=== PATIENT | male | born 1985 | race Caucasian/White ===

== ENCOUNTER 2024-08-30 09:11 | Emergency (ER) | payer OTHER, SELFPAY ==
[2024-08-30 09:53] VITALS: BP 119/78; PULSE 95; RESP 16; TEMP 36.6; O2SAT 99; BMI 26.2
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
--- OUTSIDE RECORDS SUMMARY | 2024-08-30 10:49 | XMS_ITS ---
Author Organization [facility] Address [address], [place] [phone] Care Team Providers Care Sugar Controller Name Role Phone Liberty Ospina Primary Care Provider Harsha Hung Unavailable [phone] [facility] [phone] REASON FOR VISIT MH Correspondence Encounters Encounter Location Date Provider Diagnosis [facility] [address], [place] [phone] 05/09/2024 [facility] Plan Of Treatment No Information Progress Notes * CUEVARenzo GODOB:1984 (38 yo M)Acc No.[id number]:05/09/2024 Patient:?Renzo CUEVA :1985???Age:38 Y???Sex:Male Address:[address], [place], [address] * true * Date:? Generated for Printi ng/Fatriciag/eTransmitting on:?08/30/2024 10:48 AM EST
--- NOTE | 2024-08-30 12:59 | ECG_ITS ---
Test Reason : CP Blood Pressure : */* mmHG Vent. Rate : 102 BPM Atrial Rate : 102 BPM P-R Int : 122 ms QRS Dur : 92 ms QT Int : 346 ms P-R-T Axes : 70 34 30 degrees QTcB Int : 450 ms Sinus tachycardia Otherwise normal ECG No previous ECGs available Referred By: Chelsea Hragrove Electronically Signed By: ROCÍO HOANG
[2024-08-30 13:41] LABS: MANUAL DIFF FLAG NO
[2024-08-30 13:42] LABS: Basophils Percent Auto 0.7 % (0-2); Eosinophils Absolute Auto 0.1 X10*3/uL (0.0-0.4); Eosinophils Percent Auto 2.5 % (0-4); Imm Gran Abs Auto 0.01 X10*3/uL (0.00-0.03); Imm Gran Pct Auto 0.2 % (0.0-0.4); Lymphocytes Absolute Auto 1.8 X10*3/uL (1.2-4.9); Mean Corpuscular HGB Conc 34.9 g/dl (31.0-36.0); Mean Corpuscular Hemoglobin 29.1 pg (27.0-33.0); Mean Corpuscular Volume 83.3 fL (80.0-98.0); Mean Platelet Volume 8.8 fL (9.4-12.4); Monocytes Absolute Auto 0.4 X10*3/uL (0.1-1.2); Monocytes Percent Auto 7.9 % (2-11); Neutrophils Absolute Auto 2.1 x10*3/uL (2.0-8.3); Neutrophils Percent Auto 47.7 % (45-73); Platelet Count 252 X10*3/uL (160-400); Red Blood Count 5.16 X10*6/uL (4.60-5.80); Red Cell Distribution Width 12.9 % (11.0-16.0); White Blood Count 4.4 X10*3/uL (4.8-10.8)
[2024-08-30 14:04] LABS: Alanine Aminotransferase 57 U/L (0-40); Alkaline Phosphatase 80 U/L (39-117); Anion Gap 10 (12-20); Aspartate Amino Transferase 26 U/L (5-37); Bilirubin Total 0.3 mg/dL (0.0-1.0); Blood Urea Nitrogen 12 mg/dL (9-16); Carbon Dioxide 25 mmol/L (22-29); Chloride 109 mmol/L (96-108); Creatinine Clr Calc Pharmacy 141.8; Estimated Glomerular Filt Rate > 60; Ethanol < 10 mg/dL; Glucose Random 101 mg/dL (60-115); Magnesium 2.2 mg/dL (1.6-2.6); Potassium 4.5 mmol/L (3.3-5.1); Sodium 139 mmol/L (135-145); Total Protein 7.2 g/dL (6.5-8.0)
[2024-08-30 14:05] LABS: Troponin-I High Sensitivity < 2.7 ng/L (<3.5-35.0)
--- NOTE | 2024-08-30 15:13 | ED_ITS ---
HPI - Chest Pain General Chief Complaint: Chest Pain Stated Complaint: Chest pain Time Seen by Provider: 08/30/24 15:04 Source: patient and old records reviewed Mode of arrival: ambulatory Limitations: no limitations History of Present Illness ED Provider: HILARY DURAN narrative: 39 yo male with PMH of anxiety, ED, prior palpitations and has been dealing with 6+ months of heart zings. He does not use drugs and he has been not drinking or smoking. He notes his father had heart disease at young age. Today had the same electrical shocks in his heart when he woke and called his new PCP who he hasn't seen yet and they told him to come here. No recent URI, travel, known ACS, prior VTE. He has no pain now. He is anxious. He went to [facility] for this in the past but work up was negative. MD complaint: chest pain Onset (ago): month(s) (6) Timing of current episode: episodic Prior episodes: Yes Onset: during rest and during exertion Pain location: left chest Pain radiation: none Severity: mild Quality: other ( electrical zaps ) Relieving factors: nothing Exacerbating factors: nothing Associated symptoms: palpitations Treatment prior to arrival: none Related Data Allergies Allergy/AdvReac Type Severity Reaction Status Date / Time No Known Allergies Allergy Verified 08/30/24 09:53 Review of Systems 2 Review of Systems: Constitutional : No Weight loss, No Fever, No Chills ENT/Mouth : No sore throat, No Rhinorrhea Eyes: No Eye Pain, No Swelling Cardiovascular : no Chest Pain, pos SOB, no Dyspnea on Exertion, No Orthopnea, No Edema, No Palpitations Respiratory : No Cough, No Sputum Gastrointestinal : no Nausea, No Vomiting, No Diarrhea, No abdominal Pain, No Hematochezia, No Melena Genitourinary : No Dysuria, No Urinary Frequency Musculoskeletal : No joint pain, No Myalgias, No Joint Swelling Skin : No Skin Lesions, No rash Neuro : No Weakness, No Numbness, No Dizziness, No Headache Psych : pos Anxiety/Panic, No Depression All other systems reviewed and are negative [facility] Past Medical History Attestation statement: The following information was validated with the patient. Source: old records reviewed Medical History (Updated 08/30/24 @ 15:33 by Ibis May DO) Anxiety Social History Social History (Updated 02/21/25 @ 15:33 by Ibis May DO) Patient Tobacco Use Status: Former Tobacco user Physical Exam 2 Vital Signs: Vital Signs: Last Vital Signs Temp 98 F 08/30/24 09:53 Pulse 95 08/30/24 09:53 Resp 16 08/30/24 09:53 BP 119/78 08/30/24 09:53 Pulse Ox 99 08/30/24 09:53 O2 Del Method Room Air 08/30/24 09:53 BMI result Body Mass Index 26.2 Appearance: Alert. Oriented X3. No acute distress. anxious Eyes: Pupils equal, round and reactive to light. ENT: Pharynx normal. Neck: Normal inspection. Neck supple. CVS: Normal heart rate and rhythm. Pulses normal. Respiratory: No respiratory distress. Breath sounds normal. Abdomen: Soft and nontender. Skin: Skin warm and dry. Normal skin color. Normal skin turgor. Extremities: No lower extremity edema. No calf ttp Neuro: Oriented X 3. No motor deficit. No sensory deficit. CN2-12 intact Course Course Course Narrative: repeat BP 138/68 HR in 90s Medical Decision Making Medical Decision Making [facility] Narrative: 39 yo male with PMH of anxiety, alcohol abuse stopped drinking and smoking 2 days ago now here with c/o atypical electrical shock type pain x 6 months on and off today it was worse when he woke. No recent travel and no procedures. He has been seen at [facility] in the past for the same. He is not an IVDA - at this time patient will need basic labs and EKG. Suspect more lyte issue vs atypical chest pain vs anxiety. Doubt VTE/dissection given 6 months of symptoms. Differential Diagnosis Differential Diagnoses: The differential diagnosis associated with the presentation includes anxiety, atypical chest pain doubt VTE given 6 months duration BP stable, labs reassuring, lungs CTAB doubt PTX given 6 months of symptoms Admission/Observation Consideration of admission/observation: Escalation of care including admission/observation considered labs reassuring stable for DC Lab Data [facility] Lab Attestation statement: I reviewed the patient's lab results. 08/30/24 13:28 08/30/24 13:28 Labs: Lab Results 08/30/24 Range/Units 13:28 WBC 4.4 L (4.8-10.8) X10*3/uL RBC 5.16 (4.60-5.80) X10*6/uL Hgb 15.0 (14.0-18.0) g/dl Hct 43.0 (42.0-52.0) % MCV 83.3 (80.0-98.0) fL MCH 29.1 (27.0-33.0) pg MCHC 34.9 (31.0-36.0) g/dl RDW 12.9 (11.0-16.0) % Plt Count 252 (160-400) X10*3/uL MPV 8.8 L (9.4-12.4) fL Immature Gran % (Auto) 0.2 (0.0-0.4) % Neut % (Auto) 47.7 (45-73) % Lymph % (Auto) 41.0 H (20-40) % [place] % (Auto) 7.9 (2-11) % Eos % (Auto) 2.5 (0-4) % Baso % (Auto) 0.7 (0-2) % Lymph # (Auto) 1.8 (1.2-4.9) X10*3/uL [place] # (Auto) 0.4 (0.1-1.2) X10*3/uL Eos # (Auto) 0.1 (0.0-0.4) X10*3/uL Baso # (Auto) 0.0 (0.0-0.2) X10*3/uL Abs Immat Gran (auto) 0.01 (0.00-0.03) X10*3/uL Absolute Neuts (auto) 2.1 (2.0-8.3) x10*3/uL Absolute Nucleated RBC 0.000 (0.0-0.012) X10*3/uL Nucleated RBC % (auto) 0.0 (0.0-0.2) /100WBC Sodium 139 (135-145) mmol/L Potassium 4.5 (3.3-5.1) mmol/L Chloride 109 H (96-108) mmol/L Carbon Dioxide 25 (22-29) mmol/L Anion Gap 10 L (12-20) BUN 12 (9-16) mg/dL Creatinine 0.73 (0.5-1.4) mg/dL Estim Creat Clear Calc 141.8 Estimated GFR > 60 Random Glucose 101 (60-115) mg/dL Calcium 9.0 (8.4-10.2) mg/dL Magnesium 2.2 (1.6-2.6) mg/dL Total Bilirubin 0.3 (0.0-1.0) mg/dL AST 26 (5-37) U/L ALT 57 H (0-40) U/L Alkaline Phosphatase 80 (39-117) U/L Troponin I High Sens < 2.7 (<3.5-35.0) ng/L Total Protein 7.2 (6.5-8.0) g/dL Albumin 4.0 (3.5-5.0) g/dL Ethyl Alcohol < 10 mg/dL Independent Interpretation I performed an independent interpretation of an: EKG Interpretation: Rate: 102 Rhythm: sinus tachycardia Ke[place]: normal Normal P waves. Normal CARLOS. Normal QRS complex. ST T wave : normal no ELIZABETH qTC: 450 prior studies: no acute ischemia The study has been interpreted contemporaneously by me. . External Record Review External record reviewed: Outpatient record Prescription Management I considered prescription management with: Other Discharge Plan Discharge Clinical Impression: Atypical chest pain, Heart palpitations Patient Disposition: Home, Self-Care Instructions: Chest Pain (ED), Heart Palpitations (ED) Additional Instructions: labs reassuring other than mild bump in one liver enzyme - can monitor with your doctor do not take any diuretics return for any worsening symptoms or concerns follow up with your doctor and radial drill operator for plastic given your family history decrease caffeine/energy drink intake Referrals: [facility] [Provider Group] Print Language: Prydeinig
--- NOTE | 2024-08-30 15:23 | PC.NURSE ---
PT WAS SEEN AND DISCHARGED BY PROVIDER
== END 2024-08-30 15:24 | disposition home or self-care (01) ==
PROVIDERS: Physician Assistant Medical; Emergency Provider Emergency Medicine
DX: R07.89 Other chest pain (principal); R00.2 Palpitations; Z51.81 Encounter for therapeutic drug level monitoring; Z79.899 Other long term (current) drug therapy
CPT/HCPCS: 36415; 80053; 80307; 83735; 84484; 85025; 93005; 99283

== ENCOUNTER → 2024-08-30 12:59 | Outpatient (BNV) | payer OTHER, SELFPAY | PROVIDERS: Emergency Provider Emergency Medicine; Visit Provider Internal Medicine | DX: R00.0 Tachycardia, unspecified (principal) | CPT/HCPCS: 93010 ==

== ENCOUNTER 2025-01-02 13:15 | Emergency (ER) | payer OTHER, SELFPAY ==
--- NOTE | 2025-01-02 13:20 | ED_ITS ---
HPI - Ear Problem General Chief complaint: Ear Problems Stated complaint: Object in ear canal? Time Seen by Provider: 01/02/25 13:27 Source: patient and RN notes reviewed Mode of arrival: ambulatory Limitations: no limitations History of Present Illness ED Provider: Betty Tamez PA-C HPI Narrative: This is a 39-year-old male, with no known medical problems, who presents emergency department with complaints of left ear blockage. Patient states that he believes that piece of on and got trapped in his nasal cavity yesterday. States that he has pressure in his left nose and left ear feels blocked. Recently completed amoxicillin for dental pain. No fevers, chills, headache, dizziness, blurred vision, CP, SOB. No other complaints or concerns at this time. MD Complaint: decreased hearing Location: left ear Severity: moderate Relieving factors: nothing Exacerbating factors: nothing Discharge from ear: no Associated symptoms ear: decreased hearing Treatment prior to arrival: none Related Data Previous Rx's ?Medication ?Instructions ?Recorded doxycycline hyclate 100 mg tablet 100 mg PO BID 7 days #14 tabs 01/02/25 fluticasone propionate 50 2 spray intranasal DAILY #16 grams 01/02/25 mcg/actuation nasal spray,suspension (Flonase Allergy Relief) Allergies Allergy/AdvReac Type Severity Reaction Status Date / Time No Known Allergies Allergy Verified 01/02/25 13:25 Review of Systems Review of Systems: Yes all other systems are reviewed and are negative Constitutional: Constitutional: Reports as per [facility] Past Medical History Medical History (Updated 01/03/25 @ 00:01 by Greg Levi) Anxiety Social History Social History (Updated 08/30/24 @ 15:33 by Ibis May DO) Patient Tobacco Use Status: Former Tobacco user Advance Directives: No Advance Directives Information Provided: Yes Physical Exam Vital Signs: Vital Signs: Last Vital Signs Temp 97.8 F 01/02/25 14:20 Pulse 107 H 01/02/25 14:20 Resp 16 01/02/25 14:20 BP 132/98 H 01/02/25 14:20 Pulse Ox 95 01/02/25 14:20 O2 Del Method Room Air 01/02/25 14:20 BMI result Body Mass Index 29.1 Const: General: cooperative, comfortable and no acute distress Alfredo entation/consciousness: patient oriented x3 Limitations: no limitations HEENT: Other: Left ear canal with cerumen impaction noted, unable to visualize TM, after irrigation, TM intact no erythema or bulging. L nare with polyp noted, no FB seen. Head: Yes normal to inspection, Yes normocephalic and Yes atraumatic Ears: hearing grossly normal bilaterally General nose exam: Normal external nose present Face and sinus: Yes normal facial exam Mouth: Normal oral and palatal mucosa present, oropharynx normal and moist mucous membranes Throat: Yes posterior oropharynx normal Eyes: General: appearance normal, both eyes and all related structures Eyel ids: Yes eyelids normal Conjunctivae: conjunctivae normal Sclerae: sclerae normal Pupils: Equal, round and reactive pupils present EOM: EOMs intact bilaterally Neck: Neck: Yes normal visual inspection, Yes full ROM and Yes no lymphadenopathy Lymphatic: no lymphadenopathy noted Chest: Chest palpation & inspection: normal inspection of the chest Resp: Effort & Inspection: normal respiratory effort and able to speak in complete sentences Auscultation: clear to auscultation bilaterally, no crackles, no rales, no rhonchi and no wheezes Cardio: Rate: regular rate Rhythm: regular rhythm Heart sounds: S1 normal heart sound present and S2 normal heart sound present GI: Inspection: Yes normal to inspection Skin: General skin exam: no rashes or lesions noted Trauma: no lacerations or abrasions Wounds: no wounds Neuro: General: patient oriented x3 and moves all extremities Cranial nerves: Yes Equal, round and reactive pupils present Extrem: General: Yes normal to inspection Right upper extremity: normal to inspection Left upper extremity: normal to inspection Right lower extremity: normal to inspection Left lower extremity: normal to inspection Procedures Ear Wax Removal Left Ear: Cerumenolytic Used: Colace Results: Re-examined: cerumen removed completely TM Examination: TM(s) intact, normal appearance Ear Canal Exam: atraumatic Patient Tolerated Procedure: well and no complications Complications: no problems Technique: ear canal irrigated and ear canal curetted Medical Decision Making Medical Decision Making MDM Narrative: This is a 39-year-old male, with no known medical problems, who presents emergency department with complaints of left ear blockage. Pt's ear irrigated with cerumen removed, pt tolerated well. Pt with TTP overlying maxillary sinuses and left nasal polp noted. DDX inicluding acute sinusitis, cerumen impaction, FB. given recent tx with amox, will trial doxy for sinusitis. Also encouraged to use steroidal nasal spray for polyp in left nare. Given return precautions. Stable for d.c Differential Diagnosis Differential Diagnoses: The differential diagnosis associated with the presentation includes see above Admission/Observation Consideration of admission/observation: Escalation of care including admission/observation considered Lab Data MDM Lab Attestation statement: I reviewed the patient's lab results. Negative Labs: Lab Results 01/02/25 Range/Units 13:30 Influenza Type A (PCR) NEGATIVE (Negative) Influenza Type B (PCR) NEGATIVE (Negative) RSV RNA Qual (PCR) NEGATIVE (Negative) SARS-CoV-2 RNA (RT-PCR) NEGATIVE (Negative) S. pyogenes GrpA PITO Negative (Negative) Discharge Plan Discharge Clinical Impression: Cerumen impaction, Sinus pain, Seasonal allergies Patient Disposition: Home, Self-Care Instructions: Allergies (ED) Additional Instructions: You were seen in the ER today. You could not stay for your test results to return - I will call you with your test results performed today. Your left ear did have cerumen in it therefore we flushed this out. Please use an allergy medication daily as this will help with your symptoms. If any new or worsening symptoms occur, please return for re-evaluation. Prescriptions: New fluticasone propionate [Flonase Allergy Relief] 50 mcg/actuation spray,suspension 2 spray intranasal DAILY Qty: 16 0RF Rx Instructions: administer into each nostril doxycycline hyclate 100 mg tablet 100 mg PO BID 7 Days Qty: 14 0RF Stand Alone Forms: Work/School Release Interventions: ED Discharge Assessment Last Done: 01/02/25 14:20 Discharge Date/Time: 01/02/25 14:20 Print Language: Mexican
[2025-01-02 13:22] VITALS: BP 132/98; PULSE 107; RESP 16; TEMP 36.6; O2SAT 95; BMI 29.1
[2025-01-02 13:54] LABS: IDNOW Serial# 58CA691E; Strep A Nucleic Acid Negative (Negative)
[2025-01-02 14:20] VITALS: BP 132/98; PULSE 107; RESP 16; TEMP 36.6; O2SAT 95
[2025-01-02 14:21] LABS: Influenza A PCR NEGATIVE (Negative); Influenza B PCR NEGATIVE (Negative); Resp Syncy Virus RNA Qual PCR NEGATIVE (Negative); SARS COV2 PCR INHOUSE NEGATIVE (Negative)
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
== END 2025-01-02 14:20 | disposition home or self-care (01) ==
PROVIDERS: Physician Assistant Medical; Emergency Provider Emergency Medicine
DX: H92.02 Otalgia, left ear (principal); H61.22 Impacted cerumen, left ear; J30.2 Other seasonal allergic rhinitis; J33.9 Nasal polyp, unspecified; K08.89 Other specified disorders of teeth and supporting structures; J34.89 Other specified disorders of nose and nasal sinuses; Z03.818 Encounter for observation for suspected exposure to other biological agents ruled out; Z87.891 Personal history of nicotine dependence
CPT/HCPCS: 0241U; 69209; 87651; 99282; 99283

== ENCOUNTER 2025-02-13 00:43 | Emergency (ER) | payer OTHER, SELFPAY ==
--- NOTE | 2025-02-13 | ECG_ITS ---
Test Reason : PALPITATIONS Blood Pressure : */* mmHG Vent. Rate : 128 BPM Atrial Rate : 128 BPM P-R Int : 126 ms QRS Dur : 94 ms QT Int : 318 ms P-R-T Axes : 71 32 24 degrees QTcB Int : 464 ms Sinus tachycardia Possible Inferior infarct , age undetermined Abnormal ECG When compared with ECG of 30-Aug-2024 09:15, No significant change was found Referred By: Generic ED Physician Electronically Signed By: ROCÍO HOANG
[2025-02-13 00:51] VITALS: BP 170/91; PULSE 138; RESP 16; TEMP 37.2; O2SAT 99; BMI 28.1
[2025-02-13 01:16] LABS: MANUAL DIFF FLAG NO
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
[2025-02-13 01:21] LABS: Hematocrit 36.5 % (42.0-52.0); Hemoglobin 13.2 g/dl (14.0-18.0); Imm Gran Abs Auto 0.01 X10*3/uL (0.00-0.03); Imm Gran Pct Auto 0.2 % (0.0-0.4); Lymphocytes Absolute Auto 2.3 X10*3/uL (1.2-4.9); Mean Corpuscular HGB Conc 36.2 g/dl (31.0-36.0); Mean Corpuscular Hemoglobin 28.8 pg (27.0-33.0); Mean Corpuscular Volume 79.5 fL (80.0-98.0); NRBC Abs Auto 0.000 X10*3/uL (0.0-0.012); NRBC Pct Auto 0.0 /100WBC (0.0-0.2); Platelet Count 186 X10*3/uL (160-400); Red Blood Count 4.59 X10*6/uL (4.60-5.80); White Blood Count 4.8 X10*3/uL (4.8-10.8)
--- NOTE | 2025-02-13 01:22 | ED_ITS ---
HPI - General Adult General Chief complaint: General Medical Stated complaint: feels like having stroke symptoms Time Seen by Provider: 02/13/25 01:13 Source: patient Mode of arrival: ambulatory Limitations: no limitations History of Present Illness ED Provider: Dr. Alexa Brito HPI narrative: Patient comes to the emergency room complaining of palpitations and anxiety. Patient states that he has been using crystal meth and drinking alcohol. Patient states that whenever he is still having palpitations, the worse case scenario is run through his head and he becomes more anxious and has more palpitations. Denies any chest pain or shortness of breath. Patient states that at baseline, he usually has a heart rate a proximally in the 110s Related Data Previous Rx's ?Medication ?Instructions ?Recorded doxycycline hyclate 100 mg tablet 100 mg PO BID 7 days #14 tabs 01/02/25 fluticasone propionate 50 2 spray intranasal DAILY #16 grams 01/02/25 mcg/actuation nasal spray,suspension (Flonase Allergy Relief) Allergies Allergy/AdvReac Type Severity Reaction Status Date / Time No Known Allergies Allergy Verified 02/13/25 00:53 Review of Systems 2 Review of Systems: Constitutional : No Weight loss, No Fever, No Chills, No Night Sweats, No Fatigue, No Malaise ENT/Mouth : No Hearing loss, No Ear Pain, No Nasal Congestion, No Sinus Pain, No Hoarseness, No sore throat, No Rhinorrhea, No Swallowing Difficulty Eyes: No Eye Pain, No Swelling, No Redness, No Foreign Body, No Discharge, No Vision Changes Cardiovascular : No Chest Pain, No SOB, No Dyspnea on Exertion, No Orthopnea, No Edema, complaining of Palpitations Respiratory : No Cough, No Sputum, No Wheezing, No Smoke Exposure, No Dyspnea Gastrointestinal : No Nausea, No Vomiting, No Diarrhea, No Constipation, No abdominal Pain, No Hematochezia, No Melena Genitourinary : no irregular bleeding, No Dysuria, No Urinary Frequency, No Hematuria, No Urinary Incontinence, No Urgency, No Flank Pain, No Urinary Flow Changes, No Hesitancy Musculoskeletal : No joint pain, No Myalgias, No Joint Swelling Skin : No Skin Lesions, No rash Neuro : No Weakness, No Numbness, No Paresthesias, No Loss of Consciousness, No Dizziness, No Headache Psych : Complaining of anxiety, palpitations, No Depression, No SI/HI/AH/VH, admits to methamphetamine abuse Heme/Lymph: No Bruising, No Bleeding,No Lymphadenopathy Endocrine : No Polyuria, No Polydipsia, No Temperature Intolerance [facility] Past Medical History Medical History Anxiety Social History Social History (Updated 08/30/24 @ 15:33 by Ibis May DO) Alcohol intake: current Alcohol intake frequency: 3 or more drinks per day Alcohol type: hard liquor Patient Tobacco Use Status: Former Tobacco user Use of substances other than those prescribed or required for medical reasons: Yes Substance Use Type: Methamphetamine Substance Use Frequency: Chronic Longstanding Last Used Substance: Hours (ago) Advance Directives: No Advance Directives Information Provided: Yes Physical Exam ED Exam Exam: Appearance: Alert. Oriented X3. No acute distress. Eyes: Pupils equal, round and reactive to light. ENT: Pharynx normal. Neck: Normal inspection. Neck supple. No lymph nodes noted. No crepitus CVS: Heart rate regular, heart rate in the 120s, Pulses normal. Normal S1 and S2 Respiratory: No respiratory distress. Breath sounds normal. No Wheezing. No rales Abdomen: Soft and nontender. No rigidity. No distention. Skin: Skin warm and dry. Normal skin color. Normal skin turgor. Extremities: No lower extremity edema. No Lacerations. No Rash Neuro: Oriented X 3. No motor deficit. No sensory deficit. Moving all extremities. No slurred speech. CN 2 through 12 grossly intact Psych: calm, cooperative, normal affect Vital Signs: Vital Signs - 24 hr 02/13/25 00:51 02/13/25 01:58 Temperature 99.0 F 98.2 F Pulse Rate 138 H 111 H Respiratory Rate 16 22 H Blood Pressure 170/91 H 127/85 Pulse Oximetry 99 96 Oxygen Delivery Method Room Air Room Air BMI result Body Mass Index 28.1 Course Course Course Narrative: Patient admits to drinking alcohol and using meth Patient admits to having panic attacks and severe anxiety Labs pending Patient receiving p.o. diazepam Medications Administered Discontinued Medications Generic Name Dose Route Start Last Admin Trade Name Freq PRN Reason Stop Dose Admin Diazepam 2 mg 02/13/25 01:25 02/13/25 01:30 Diazepam 2 Mg Tablet PO 02/13/25 01:26 2 mg ONCE ONE Administration Medical Decision Making Medical Decision Making [facility] Narrative: My interpretation of EKG: Sinus tachycardia, heart rate 128, no ST segment depression or elevation, no T-wave inversion, QTC 464 My interpretation of labs: Normal white blood cell count, patient is slightly anemic with a hemoglobin of 13.2, MCV of 79.5. No significant abnormality in patient's chemistry, troponin negative. Urinalysis positive for buprenorphine and amphetamines Patient was likely having anxiety/panic attack secondary to amphetamine use Patient's heart rate improved to 111 which is patient's baseline. Blood pressure 127/85. Patient overall feeling better. Most likely, patient is having palpitations due to amphetamine use. However, I discussed with the patient that if he continues having sporadic palpitations, he may be a good candidate for a Holter monitor evaluation. Differential Diagnosis Differential Diagnoses: The differential diagnosis associated with the presentation includes (SVT, anxiety, panic attack, methamphetamine abuse) Admission/Observation Consideration of admission/observation: Escalation of care including admission/observation considered (Given patient's severity of symptoms on arrival, observation was considered) Lab Data [facility] Lab Attestation statement: I reviewed the patient's lab results. 02/13/25 01:01 02/13/25 01:01 Labs: Lab Results 02/13/25 02/13/25 Range/Units 01:01 02:01 WBC 4.8 (4.8-10.8) X10*3/uL RBC 4.59 L (4.60-5.80) X10*6/uL Hgb 13.2 L (14.0-18.0) g/dl Hct 36.5 L (42.0-52.0) % MCV 79.5 L (80.0-98.0) fL MCH 28.8 (27.0-33.0) pg MCHC 36.2 H (31.0-36.0) g/dl RDW 13.1 (11.0-16.0) % Plt Count 186 D (160-400) X10*3/uL MPV 9.4 (9.4-12.4) fL Immature Gran % (Auto) 0.2 (0.0-0.4) % Neut % (Auto) 39.2 L (45-73) % Lymph % (Auto) 47.7 H (20-40) % [place] % (Auto) 10.2 (2-11) % Eos % (Auto) 2.3 (0-4) % Baso % (Auto) 0.4 (0-2) % Lymph # (Auto) 2.3 (1.2-4.9) X10*3/uL [place] # (Auto) 0.5 (0.1-1.2) X10*3/uL Eos # (Auto) 0.1 (0.0-0.4) X10*3/uL Baso # (Auto) 0.0 (0.0-0.2) X10*3/uL Abs Immat Gran (auto) 0.01 (0.00-0.03) X10*3/uL Absolute Neuts (auto) 1.9 L (2.0-8.3) x10*3/uL Absolute Nucleated RBC 0.000 (0.0-0.012) X10*3/uL Nucleated RBC % (auto) 0.0 (0.0-0.2) /100WBC Sodium 141 (135-145) mmol/L Potassium 3.3 D (3.3-5.1) mmol/L Chloride 106 (96-108) mmol/L Carbon Dioxide 24 (22-29) mmol/L Anion Gap 14 (12-20) BUN 14 (9-16) mg/dL Creatinine 0.84 (0.5-1.4) mg/dL Estim Creat Clear Calc 133.8 Estimated GFR > 60 Random Glucose 118 H (60-115) mg/dL Calcium 8.8 (8.4-10.2) mg/dL Troponin I High Sens < 2.7 (<3.5-35.0) ng/L Urine Opiates Screen Not Detected (Not Detect) Ur Buprenorphine Scrn Positive H (Not Detect) ng/mL Ur Oxycodone Screen Not Detected (Not Detect) ng/mL Urine Methadone Screen Not Detected (Not Detect) ng/mL Urine Fentanyl Screen Not Detected (Not Detect) Ur Barbiturates Screen Not Detected (Not Detect) Ur Phencyclidine Scrn Not Detected (Not Detect) Ur Amphetamines Screen POSITIVE H (Not Detect) U Benzodiazepines Scrn Not Detected (Not Detect) Urine Cocaine Screen Not Detected (Not Detect) U Marijuana (THC) Screen Not Detected (Not Detect) Independent Interpretation I performed an independent interpretation of an: EKG Critical Care Time Critical Care Time Critical Care Time: Yes Total Critical Care Time: 35 Attestation: I have personally provided critical care time. Time includes review of lab data, radiology results, discussion with consultants, and monitoring for potential decompensation. Intervention performed as documented. Discharge Plan Discharge Clinical Impression: Palpitations, Anxiety Patient Disposition: Home, Self-Care Instructions: Anxiety (ED), Heart Palpitations (ED) Additional Instructions: Please follow-up with your primary care physician tomorrow. If you have any worsening or new symptoms, please return to the emergency room or call 911 Prescriptions: No Action fluticasone propionate [Flonase Allergy Relief] 50 mcg/actuation spray,suspension 2 spray intranasal DAILY Qty: 16 0RF Rx Instructions: administer into each nostril doxycycline hyclate 100 mg tablet 100 mg PO BID 7 Days Qty: 14 0RF Print Language: Armenian
[2025-02-13 01:31] LABS: Anion Gap 14 (12-20); Blood Urea Nitrogen 14 mg/dL (9-16); Calcium 8.8 mg/dL (8.4-10.2); Carbon Dioxide 24 mmol/L (22-29); Chloride 106 mmol/L (96-108); Creatinine Clr Calc Pharmacy 133.8; Estimated Glomerular Filt Rate > 60; Potassium 3.3 mmol/L (3.3-5.1); Sodium 141 mmol/L (135-145)
--- NOTE | 2025-02-13 01:31 | PC.NURSE ---
this RN assumd care of this pt @0104, pt changed over into hospital gown and placed on environmental solutions engineer, blood work and EKG done in triage, medicated per MAR, blood work pending, new orders pending
[2025-02-13 01:44] LABS: Troponin-I High Sensitivity < 2.7 ng/L (<3.5-35.0)
[2025-02-13 01:58] VITALS: BP 127/85; PULSE 111; RESP 22; TEMP 36.8; O2SAT 96
[2025-02-13 02:18] LABS: Cannabinoid Screen Urine Not Detected (Not Detect)
[2025-02-13 02:51] VITALS: BP 127/85; PULSE 111; RESP 22; TEMP 36.8; O2SAT 96
== END 2025-02-13 02:51 | disposition home or self-care (01) ==
PROVIDERS: Emergency Provider Emergency Medicine
DX: R00.2 Palpitations (principal); F41.9 Anxiety disorder, unspecified; F10.10 Alcohol abuse, uncomplicated; F19.90 Other psychoactive substance use, unspecified, uncomplicated
CPT/HCPCS: 36415; 80048; 80307; 84484; 85025; 93005; 99284

== ENCOUNTER → 2025-02-13 00:50 | Outpatient (BNV) | payer OTHER, SELFPAY | PROVIDERS: Emergency Provider Emergency Medicine; Visit Provider Internal Medicine | DX: R00.0 Tachycardia, unspecified (principal) | CPT/HCPCS: 93010 ==

== ENCOUNTER 2025-05-10 23:23 | Emergency (ER) | payer OTHER, SELFPAY ==
--- OUTSIDE RECORDS SUMMARY | 2025-03-22 17:00 | XMS_ITS ---
Author Organization [facility] Address [address] [place] [address] Care Team Providers Care Generation Mechanic Helper Name Role Phone YuliyaAron - DO NOT USELiberty Primary C are Provider Unavailable Harsha Allan Unavailable [phone] Migration, Provider Unavailable Unavailable REASON FOR VISIT Multum To Medisp Conversion Encounter Medications Medication SIG (Take, Route, Frequency, Duration) Notes Start Date End Date Status busPIRone HCl 15 MG 1 tab(s) orally 2 times a day as needed for anxiety for 28 days Not-Taking cloNIDine HCl 0.1 MG 1 tab(s) orally 2 times a day for 30 day(s) Not-Taking hydrOXYzine Pamoate 25 MG 1 cap(s) orally QHS for sleep for 28 days Not-Taking Lasix 20 MG 1 tab(s) orally once a day in the AM for 3 days - do not use on very hot days for 3 days 03/05/2019 Active Permethrin 5 % 1 maya applied topically once from neck to toes before bed, wash off in AM for 1 dose(s) 02/05/2019 Not-Taking Citalopram Hydrobromide 20 MG 1 tab(s) orally daily for 30 days 01/03 last filled #60 1 RF Active Adderall 30 MG 1 tab(s) orally 2 times a day for 30 day(s) Active Nicotine Polacrilex 4 MG 2 GUM chewed every 2 hours for 30 days Active Suboxone 8-2 MG 1 film sublingually once a day Active Encounters Encounter Location Date Provider Diagnosis [facility] [address] [place] [address] 03/22/2025 Provider Migration Carpal tunnel syndrome, bilateral upper limbs G56.03 Assessments Encounter Date Diagnosis (ICD Code) Assessment Notes Treatment Notes Treatment Clinical Notes Section Notes 03/22/2025 Carpal tunnel syndrome, bilateral upper limbs (ICD-10 - G56.03) Plan Of Treatment Medication Medication Name Sig Start Date Stop Date Notes Lasix 20 MG 1 tab(s) orally once a day in the AM for 3 days - do not use on very hot days for 3 days 03/05/2019 Progress Notes * Renzo CUEVADOB:1984 (39 yo M)Acc No.[id number]:03/22/2025 Patient: Renzo KIM Provider: :1985 A ge:39 Y S ex:Male Date:03/22/2025 Address:[address] [place], [place] [id number] Pcp:Liberty Stephenson - DO NOT USE Subjective: * Chief Complaints: * 1 . Multum To Medispan Conversion Encounter. * Medical History: * Medications: T aking Adderall 30 MG Tablet 1 tab(s) orally 2 times a day , Taking Citalopram Hydrobromide 20 MG Tablet 1 tab(s) orally daily , Notes to Pharmacist: 01/03 last filled #60 1 RF, Taking Suboxone 8-2 MG Film 1 film sublingually once a day , Taking Nicotine Polacrilex 4 MG Gum 2 GUM chewed every 2 hours , Not-Taking/PRN hydrOXYzine Pamoate 25 MG Capsule 1 cap(s) orally QHS for sleep , Not-Taking/PRN cloNIDine HCl 0.1 MG Tablet 1 tab(s) orally 2 times a day , Not-Taking/PRN busPIRone HCl 15 MG Tablet 1 tab(s) orally 2 times a day as needed for anxiety , Not-Taking/PRN Permethrin 5 % Cream 1 maya applied topically once from neck to toes before bed, wash off in AM Objective: * Vitals: Assessment: * Assessment: 1. C arpal tunnel syndrome, bilateral upper limbs - G56.03 (Primary) Plan: * Treatment: * Images: Billing Information: * Visit Code: * Procedure Codes: * Electronic signature of Prov ider Migration on 05/11/2025 at 12:22 AM EDT Sign off status: Pending * Provider: Date: 0 03/22/2025 Generated for Cordell figueroa/Rusty/[place] on: 07/11/2024 12:22 AM EDT
[2025-05-10 23:26] VITALS: BP 150/91; PULSE 124; RESP 20; TEMP 36.5; O2SAT 100; BMI 28.7
--- NOTE | 2025-05-10 23:28 | ECG_ITS ---
Test Reason : CP Blood Pressure : */* mmHG Vent. Rate : 124 BPM Atrial Rate : 124 BPM P-R Int : 124 ms QRS Dur : 96 ms QT Int : 328 ms P-R-T Axes : 81 49 34 degrees QTcB Int : 471 ms Sinus tachycardia Possible Inferior infarct (cited on or before 13-Feb-2025) Abnormal ECG When compared with ECG of 13-Feb-2025 00:50, No significant change was found Referred By: Generic ED Physician Electronically Signed By: ROCÍO OHANG
--- NOTE | 2025-05-10 23:47 | ED.GENADULT ---
[facility] - General Adult General Chief complaint: Arrhythmia/Palpitations Stated complaint: heart palpatations Time Seen by Provider: 05/10/25 23:43 Source: patient Mode of arrival: ambulatory Limitations: no limitations History of Present Illness ED Provider: Dr. Story [facility] narrative: 39-year-old male presented hospital today for evaluation of palpitations and dizziness. Patient stated that he ate some crystal meth prior to arrival. He does have history of anxiety. He does take Klonopin 0.5 mg b.i.d. p.r.n.. However has not follow up with his psychiatrist for this. He feels anxious. Patient stated that he feel his chest palpitating. Denies any fever or cough. Related Data Previous Rx's ?Medication ?Instructions ?Recorded doxycycline hyclate 100 mg tablet 100 mg PO BID 7 days #14 tabs 01/02/25 fluticasone propionate 50 2 spray intranasal DAILY #16 grams 01/02/25 mcg/actuation nasal spray,suspension (Flonase Allergy Relief) clonazepam 0.5 mg tablet (Klonopin) 0.5 mg PO BID PRN anxiety #14 tabs 05/11/25 Allergies Allergy/AdvReac Type Severity Reaction Status Date / Time No Known Allergies Allergy Verified 05/10/25 23:27 Review of Systems Review of Systems: Pertinent review of systems as mentioned in [facility]. All other system otherwise negative. [facility], [facility] Past Medical History FOR[facility], [facility] Narrative: Medical history as mentioned in [facility] Medical History Anxiety Social History Social History (Updated 08/30/24 @ 15:33 by Ibis May DO) Alcohol intake: current Alcohol intake frequency: 3 or more drinks per day Alcohol type: hard liquor Patient Tobacco Use Status: Former Tobacco user Smoked in Last 30 Days: Yes Use of substances other than those prescribed or required for medical reasons: Yes Substance Use Type: Methamphetamine Advance Directives: No Advance Directives Information Provided: Yes Do you have a plan to hurt others: No Plan Physical Exam ED Exam Exam: General: Pleasant, no distress, interacting appropriately Head: Normacephalic, atraumatic ENT: oral mucosa moist, neck supple, no tracheal deviation Cardiovascular: Tachycardic rate, regular rhythm, no murmurs, rubbing, gallops Respiratory: CTAB, no wheeze, rales, rhonchi Gastrointestinal: Soft, non distended, non tender, non guarding Extremities: No limb pain or swelling, no calf tenderness Neurological: Awake and alert, no facial droop noted Skin: Warm and dry Psychiatric: Appropriate mood and thoughts Vital Signs: Vital Signs - 24 hr 05/10/25 23:26 05/11/25 02:36 05/11/25 02:47 Temperature 97.7 F 98.2 F Pulse Rate 124 H 96 111 H Respiratory Rate 20 18 Blood Pressure 150/91 H 129/93 H Pulse Oximetry 100 98 Oxygen Delivery Method Room Air Room Air 05/11/25 02:52 Temperature 98.2 F Pulse Rate 111 H Respiratory Rate 18 Blood Pressure 129/93 H Pulse Oximetry 98 Oxygen Delivery Method Room Air BMI result Body Mass Index 28.7 Medications Administered Discontinued Medications Generic Name Dose Route Start Last Admin Trade Name Freq PRN Reason Stop Dose Admin Sodium Chloride 1,000 mls @ 999 mls/hr 05/10/25 23:45 05/11/25 01:52 EST Ns IV 05/11/25 00:45 Infused .Q1H1M [facility] Infusion Midazolam HCl 4 mg 05/11/25 00:37 05/11/25 00:49 Midazolam Hcl 2 Mg/2 Ml Vial IVPUSH 05/11/25 00:38 4 mg ONCE ONE Administration Medical Decision Making Medical Decision Making [facility] Narrative: 39-year-old male presented hospital today for evaluation of palpitations dizziness and shortness of breath after using meth. IV fluid initiated. We will plan to give patient a dose of IV Versed. EKG obtained shows sinus tachycardia. Patient is ACS workup has been negative. On reassessment patient is feeling much better. He stated his symptom has resolved. Patient's heart rate has improved to the 90s on re-evaluation. We will plan to discharge patient at this time. Encouraged him to follow up with a psychiatrist for his Klonopin. We will plan to refill a couple of days of Klonopin for the patient. Differential Diagnosis Differential Diagnoses: The differential diagnosis associated with the presentation includes Methamphetamine use, dehydration, tachycardia, anxiety, benzo withdrawal Lab Data [facility] Lab Attestation statement: I reviewed the patient's lab results. 05/10/25 23:48 05/10/25 23:48 Labs: Lab Results 05/10/25 05/11/25 Range/Units 23:48 00:17 WBC 4.6 L (4.8-10.8) X10*3/uL RBC 5.16 (4.60-5.80) X10*6/uL Hgb 15.0 (14.0-18.0) g/dl Hct 42.4 (42.0-52.0) % MCV 82.2 (80.0-98.0) fL MCH 29.1 (27.0-33.0) pg MCHC 35.4 (31.0-36.0) g/dl RDW 13.2 (11.0-16.0) % Plt Count 127 L D (160-400) X10*3/uL MPV 9.8 (9.4-12.4) fL Immature Gran % (Auto) 0.2 (0.0-0.4) % Neut % (Auto) 48.8 (45-73) % Lymph % (Auto) 39.4 (20-40) % [place] % (Auto) 8.0 (2-11) % Eos % (Auto) 3.2 (0-4) % Baso % (Auto) 0.4 (0-2) % Lymph # (Auto) 1.8 (1.2-4.9) X10*3/uL [place] # (Auto) 0.4 (0.1-1.2) X10*3/uL Eos # (Auto) 0.2 (0.0-0.4) X10*3/uL Baso # (Auto) 0.0 (0.0-0.2) X10*3/uL Abs Immat Gran (auto) 0.01 (0.00-0.03) X10*3/uL Absolute Neuts (auto) 2.3 (2.0-8.3) x10*3/uL Absolute Nucleated RBC 0.000 (0.0-0.012) X10*3/uL Nucleated RBC % (auto) 0.0 (0.0-0.2) /100WBC Smear Tech's Comments VERIFIED Sodium 140 (135-145) mmol/L Potassium 4.1 D (3.3-5.1) mmol/L Chloride 106 (96-108) mmol/L Carbon Dioxide 23 (22-29) mmol/L Anion Gap 15 (12-20) BUN 10 (9-16) mg/dL Creatinine 0.85 (0.5-1.4) mg/dL Estim Creat Clear Calc 129.5 Estimated GFR > 60 Random Glucose 102 (60-115) mg/dL Calcium 9.1 (8.4-10.2) mg/dL Total Bilirubin 0.4 (0.0-1.0) mg/dL AST 55 H (5-37) U/L ALT 53 H (0-40) U/L Alkaline Phosphatase 103 (39-117) U/L Troponin I High Sens < 2.7 (<3.5-35.0) ng/L Total Protein 7.5 (6.5-8.0) g/dL Albumin 4.4 (3.5-5.0) g/dL Urine Color Yellow Urine Appearance Clear Urine pH 6.5 (5.0-9.0) Ur Specific [place] 1.010 (1.005-1.025) Urine Protein Negative (Neg-Trace) mg/dL Urine Glucose (UA) Negative (Negative) mg/dL Urine Ketones Negative (Negative) mg/dL Urine Blood Negative (Negative) Urine Nitrite Negative (Negative) Ur Leukocyte Esterase Negative (Negative) Urine Opiates Screen Not Detected (Not Detect) Ur Buprenorphine Scrn Positive H (Not Detect) ng/mL Ur Oxycodone Screen Not Detected (Not Detect) ng/mL Urine Methadone Screen Not Detected (Not Detect) ng/mL Urine Fentanyl Screen Not Detected (Not Detect) Ur Barbiturates Screen Not Detected (Not Detect) Ur Phencyclidine Scrn Not Detected (Not Detect) Ur Amphetamines Screen POSITIVE H (Not Detect) U Benzodiazepines Scrn Not Detected (Not Detect) Urine Cocaine Screen Not Detected (Not Detect) U Marijuana (THC) Screen Not Detected (Not Detect) Independent Interpretation I performed an independent interpretation of an: EKG Discharge Plan Discharge Clinical Impression: Anxiety Patient Disposition: Home, Self-Care Additional Instructions: Follow up with your psychiatrist for your medications. Stop using meth. Prescriptions: New clonazepam [Klonopin] 0.5 mg tablet 0.5 mg PO BID PRN (Reason: anxiety) Qty: 14 0RF No Action fluticasone propionate [Flonase Allergy Relief] 50 mcg/actuation spray,suspension 2 spray intranasal DAILY Qty: 16 0RF Rx Instructions: administer into each nostril doxycycline hyclate 100 mg tablet 100 mg PO BID 7 Days Qty: 14 0RF Interventions: ED Discharge Assessment Last Done: 05/11/25 02:52 Discharge Date/Time: 05/11/25 02:54 Print Language: German
[2025-05-10 23:54] LABS: Imm Gran Abs Auto 0.01 X10*3/uL (0.00-0.03); Imm Gran Pct Auto 0.2 % (0.0-0.4); MANUAL DIFF FLAG SCAN; Mean Corpuscular Volume 82.2 fL (80.0-98.0); NRBC Abs Auto 0.000 X10*3/uL (0.0-0.012); NRBC Pct Auto 0.0 /100WBC (0.0-0.2); PLT CLUMP 1; SCAN SMEAR FLAG 1
[2025-05-10 23:55] LABS: Hematocrit 42.4 % (42.0-52.0); Hemoglobin 15.0 g/dl (14.0-18.0); Lymphocytes Absolute Auto 1.8 X10*3/uL (1.2-4.9); Mean Corpuscular HGB Conc 35.4 g/dl (31.0-36.0); Mean Corpuscular Hemoglobin 29.1 pg (27.0-33.0); Red Blood Count 5.16 X10*6/uL (4.60-5.80)
[2025-05-11 00:08] LABS: Alanine Aminotransferase 53 U/L (0-40); Albumin Level 4.4 g/dL (3.5-5.0); Alkaline Phosphatase 103 U/L (39-117); Anion Gap 15 (12-20); Aspartate Amino Transferase 55 U/L (5-37); Blood Urea Nitrogen 10 mg/dL (9-16); Calcium 9.1 mg/dL (8.4-10.2); Carbon Dioxide 23 mmol/L (22-29); Chloride 106 mmol/L (96-108); Creatinine Clr Calc Pharmacy 129.5; Estimated Glomerular Filt Rate > 60; Potassium 4.1 mmol/L (3.3-5.1); Sodium 140 mmol/L (135-145); Total Protein 7.5 g/dL (6.5-8.0)
[2025-05-11 00:16] LABS: Troponin-I High Sensitivity < 2.7 ng/L (<3.5-35.0)
--- NOTE | 2025-05-11 00:20 | PC.NURSE ---
pt reports swallowing crystal meth and began to feel very anxious, flushed in the face and like he could not breath. SP02 is 97% room air, pt reports hx of generalized anxiety, symptoms better now. attempt by this RN x2 for IV line unable to obtain. awaiting IV line placement for IVF.
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
[2025-05-11 00:23] LABS: White Blood Count 4.6 X10*3/uL (4.8-10.8)
[2025-05-11 00:24] LABS: Platelet Count 127 X10*3/uL (160-400)
[2025-05-11 00:32] LABS: Appearance Urine Clear; Glucose Urine UA Negative (Negative); PH 6.5 (5.0-9.0); Specific Gravity - Urine 1.010 (1.005-1.025)
[2025-05-11 00:45] LABS: Cannabinoid Screen Urine Not Detected (Not Detect)
[2025-05-11 02:36] VITALS: PULSE 96
--- NOTE | 2025-05-11 02:36 | PC.NURSE ---
pt reports would like to go home, feeling better. Provider aware.
[2025-05-11 02:47] VITALS: BP 129/93; PULSE 111; RESP 18; TEMP 36.8; O2SAT 98
[2025-05-11 02:52] VITALS: BP 129/93; PULSE 111; RESP 18; TEMP 36.8; O2SAT 98
== END 2025-05-11 02:54 | disposition home or self-care (01) ==
PROVIDERS: Emergency Provider Student in an Organized Health Care Education/Training Program
DX: F41.9 Anxiety disorder, unspecified (principal); I49.9 Cardiac arrhythmia, unspecified; R00.2 Palpitations; R42 Dizziness and giddiness; R06.02 Shortness of breath; Z51.81 Encounter for therapeutic drug level monitoring; Z79.899 Other long term (current) drug therapy
CPT/HCPCS: 36415; 80053; 80307; 81003; 84484; 85025; 93005; 96361; 96374; 99285; J2250

== ENCOUNTER → 2025-05-10 23:28 | Outpatient (BNV) | payer OTHER, SELFPAY | PROVIDERS: Emergency Provider Student in an Organized Health Care Education/Training Program; Visit Provider Internal Medicine | DX: R00.0 Tachycardia, unspecified (principal) | CPT/HCPCS: 93010 ==